=== PATIENT | female | born 1970 | race African-American/Black ===

== ENCOUNTER 2016-05-16 12:14 | Emergency (ER) | payer MEDICAID ==
[~2016-05-16] VITALS: Ht 172.7 cm; Wt 108.9 kg
[~2016-05-16 12:14] MED LIST: CYCLOBENZAPRINE10 MG ORAL; IBUPROFEN600 MG ORAL; IBUPROFEN800 MG ORAL
[2016-05-16 12:26] VITALS: BP 132/82
[2016-05-16] MEDS ORDERED: NKM (12:33)
--- NOTE | 2016-05-16 12:54 | Emergency Room Report ---
History of Present Illness General Chief Complaint: Upper Respiratory Illness Source: Patient Present Illness HPI 45 YO Female presents to the ED c/o dry cough, nasal congestion, body-aches, and increased phlegm x 3 days. Patient is up-to-date with vaccinations she denies ill contacts or recent travel patient denies fevers or chills patient denies abdominal pain, rashes nausea or vomiting. Patient reports history of bronchitis in the past. Denies CP, Palpitations, LOC, AMS, dizziness, Changes in Vision, Sensation, paresthesias, or a sudden severe headache. Allergies: Coded Allergies: No Known Allergies (Unverified , 05/16/16) Patient History Past Medical History: see triage record Past Surgical History: none Pertinent Family History: none Last Menstrual Period: 02/2016 Now: No : 5 Para: 5 Immunizations: UTD Reviewed Nursing Documentation: PMH: Agreed, PSxH: Agreed Nursing Documentation-PMH Past Medical History: No History, Except For Review of Systems All Other Systems: negative except mentioned in HPI Physical Exam Vital Signs Date Time Temp Pulse Resp B/P Pulse Ox O2 Delivery O2 Flow Rate FiO2 05/16/16 12:26 98.1 104 18 132/82 99 Room Air Sp02 EP Interpretation: reviewed, abnormal - tachycardic at 104 General Appearance: no apparent distress, alert, GCS 15, non-toxic Head: normocephalic, atraumatic Eyes: bilateral eye PERRL, bilateral eye normal inspection ENT: hearing grossly normal, normal pharynx, no angioedema, normal voice, TMs + canals normal, uvula midline, nasal congestion, pharyngeal erythema Neck: full range of motion, supple/symm/no masses Respiratory: chest non-tender, lungs clear, normal breath sounds, speaking full sentences, wheezing - mild expiratory wheezes Cardiovascular #1: regular rate, rhythm, no edema, normal capillary refill Musculoskeletal: back normal, gait/station normal, normal range of motion, non- tender Neurologic: alert, oriented x3, responsive, motor strength/tone normal, sensory intact, speech normal Psychiatric: judgement/insight normal, memory normal, mood/affect normal, no suicidal/homicidal ideation Reflexes: 4+ bicep (R), 4+ bicep (L), 4+ tricep (R), 4+ tricep (L), 4+ knee (R) , 4+ knee (L) Skin: normal color, no rash, warm/dry, well hydrated Lymphatic: no adenopathy Medical Decision Making PA Attestation Dr. Shrestha is my supervising Physician whom patient management has been discussed with. Diagnostic Impression: Primary Impression: Bronchitis, acute Qualified Codes: J20.9 - Acute bronchitis, unspecified Additional Impression: Upper respiratory infection Qualified Codes: J06.9 - Acute upper respiratory infection, unspecified; B97.89 - Other viral agents as the cause of diseases classified elsewhere ER Course 45 YO Female presents to the ED c/o dry cough, nasal congestion, body-aches, and increased phlegm x 3 days. Patient is up-to-date with vaccinations she denies ill contacts or recent travel patient denies fevers or chills patient denies abdominal pain, rashes nausea or vomiting. Patient reports history of bronchitis in the past. Ddx considered but are not limited to URI, pneumonia, PE, strep pharyngitis, meningitis. Vital signs: Pt. is afebrile, the remaining VS are WNL H&PE are most consistent with URI- no meningeal signs, oropharynx is not involved, no evidence of bacterial infection at this time. ORDERS: none required at this time, the diagnosis is clinical ED INTERVENTIONS: None required at this time. --PT. EDUCATION: Discussed antibiotic resistance with inappropriate prescribing of antibiotics for viral illnesses. Discussed signs and symptoms to indicate viral illness versus bacterial illness. - I do not suspect an emergent condition at this time. with current presentation pt. is stable for close outpatient follow up. DISCHARGE: At this time pt. is stable for d/c to home. Will provide printed patient care instructions, and any necessary prescriptions. Care plan and follow up instructions have been discussed with the patient prior to discharge. Last Vital Signs Date Time Temp Pulse Resp B/P Pulse Ox O2 Delivery O2 Flow Rate FiO2 05/16/16 12:26 98.1 104 18 132/82 99 Room Air Disposition: HOME, SELF-CARE Condition: Stable Scripts Pseudoephedrine Hcl* (SUDAFED*) 30 Mg Tablet 30 MG PO Q6H for 5 Days, #20 TAB Prov: Carolyn Ibarra P.A. 05/16/16 Albuterol Sulfate* (ALBUTEROL SULFATE MDI*) 8.5 Gm Hfa.aer.ad 2 PUFF INH Q3H, #1 INH 0 Refills Prov: Carolyn Ibarra 05/16/16 Guaifenesin (Guaifenesin) 1,200 Mg Tab.er.12h 1200 MG PO BID for 10 Days, #20 TAB Prov: Caorlyn Ibarra 05/16/16 Codeine/Promethazine Hcl* (PROMETHAZINE-CODEINE SYRUP*) 118 Ml Syrup 5 ML ORAL Q6H, #118 ML 0 Refills Prov: Carolyn Ibarra 05/16/16 Patient Instructions: Acute Bronchitis, [id number], Upper Respiratory Infection, Adult Additional Instructions: Take medications as directed. Follow up with PCP in 3-5 days Return sooner to ED if new symptoms occur, or current symptoms become worse. Do not drink alcohol, drive, or operate heavy machinery while taking Cough Syrup as this may cause drowsiness. - Please note that this Emergency Department Report was dictated using [employer] fabricator technology software, occasionally this can lead to erroneous entry secondary to interpretation by the dictation equipment. Carolyn Ibarra May 16, 2016 12:54
[2016-05-16] MEDS ORDERED: ALBUTEROL SULF8.5 GM INH (12:55)
[2016-05-16] MEDS ORDERED: PROMETHAZINE-C118 M1 ORAL (12:55)
[2016-05-16] MEDS ORDERED: GUAIFENESIN1200 MG PO (12:55)
[2016-05-16] MEDS ORDERED: PSEUDOEPHEDRINE30 MG PO (12:55)
[2016-05-16 13:09] VITALS: BP 132/80
[2016-05-16 13:11] VITALS: BP 132/80
== END 2016-05-16 13:18 | disposition home or self-care (01) ==
LOC: EMR 13:00
DX: J20.9 Acute bronchitis, unspecified (principal); J06.9 Acute upper respiratory infection, unspecified; B97.89 Other viral agents as the cause of diseases classified elsewhere
CPT/HCPCS: 99284

== ENCOUNTER 2016-06-09 22:21 | Emergency (ER) | payer MEDICAID ==
[~2016-06-09] VITALS: Ht 172.7 cm; Wt 108.9 kg
[~2016-06-09 22:21] MED LIST changes: +ALBUTEROL SULF8.5 GM INH; +GUAIFENESIN1200 MG PO; +NKM; +PROMETHAZINE-C118 M1 ORAL; +PSEUDOEPHEDRINE30 MG PO
--- NOTE | 2016-06-09 22:55 | Emergency Room Report ---
History of Present Illness General Chief Complaint: Upper Respiratory Illness Source: Patient Present Illness HPI This is a 45-year-old female with no past medical history. She resides with chief complaint of cough congestion for last 2 weeks. No fever or chills. Cough is nonproductive. Worse with a deep breath. Worse when she walks. She has congestion. Now she has generalized pain. Was here a couple weeks ago and was given albuterol. Not helping. Denies any other complaint. Allergies: Coded Allergies: No Known Allergies (Unverified , 05/16/16) Patient History Past Medical History: none, see triage record, old chart reviewed Past Surgical History: none Pertinent Family History: none Social History: Denies: smoking Now: No : 5 Para: 5 Immunizations: other Reviewed Nursing Documentation: PMH: Agreed, PSxH: Agreed Nursing Documentation-PMH Past Medical History: No Stated History Review of Systems Eye: Denies: blurred vision, eye pain ENT: Reports: nose congestion, Denies: ear pain, throat swelling Respiratory: Reports: cough, shortness of breath Cardiovascular: Denies: chest pain, palpitations Gastrointestinal: Denies: abdominal pain, diarrhea, nausea, vomiting Musculoskeletal: Denies: back pain, joint pain Skin: Denies: rash Neurological: Denies: headache, numbness Endocrine: Denies: increased thirst, increased urine Hematologic/Lymphatic: Denies: easy bruising All Other Systems: negative except mentioned in HPI Physical Exam Vital Signs Date Time Temp Pulse Resp B/P Pulse Ox O2 Delivery O2 Flow Rate FiO2 06/09/16 22:35 97.9 103 20 133/85 99 Room Air vitals normal Sp02 EP Interpretation: reviewed, normal General Appearance: well appearing, no apparent distress, alert Head: normocephalic, atraumatic Eyes: bilateral eye EOMI, bilateral eye PERRL ENT: hearing grossly normal, normal pharynx, other - left TM with fluid Neck: full range of motion, supple, no meningismus Respiratory: chest non-tender, normal breath sounds, other - Bronchospasm with inspiration Cardiovascular #1: regular rate, rhythm, no murmur Gastrointestinal: normal bowel sounds, non tender, no mass, no organomegaly, no bruit, non-distended Musculoskeletal: back normal, gait/station normal, normal range of motion Psychiatric: mood/affect normal Skin: warm/dry Medical Decision Making Diagnostic Impression: Primary Impression: Upper respiratory infection Qualified Codes: J06.9 - Acute upper respiratory infection, unspecified Additional Impressions: Bronchospasm with bronchitis, acute Left otitis media with effusion ER Course Patient presents with an upper respiratory infection. Probably initially with viral but now worsening. Because been over 2 weeks we'll going put on antibiotics. This may be atypical pneumonia. She does have significant bronchospasm. We'll treat with nebs and steroid. No evidence of sepsis, ACS, PE, dissection to name a few. Last Vital Signs Date Time Temp Pulse Resp B/P Pulse Ox O2 Delivery O2 Flow Rate FiO2 06/09/16 22:51 103 20 Room Air 06/09/16 22:35 97.9 133/85 99 Status: improved Disposition: HOME, SELF-CARE Condition: Stable Scripts Codeine/Promethazine Hcl* (PROMETHAZINE-CODEINE SYRUP*) 118 Ml Syrup 10 ML ORAL Q6H Y for For Cough, #118 ML 0 Refills Prov: ANNABEL CUELLAR M.D. 06/09/16 Pseudoephedrine Hcl* (NEXAFED*) 30 Mg Tablet 60 MG ORAL Q6H Y for congestion, #20 TAB Prov: ANNABEL CUELLAR M.D. 06/09/16 Azithromycin* (ZITHROMAX*) 250 Mg Tablet 250 MG ORAL DAILY, #6 TAB 0 Refills Take two tablets by mouth today, then take one tablet by mouth daily for four days Prov: ANNABEL CUELLAR M.D. 06/09/16 Prednisone* (PREDNISONE*) 20 Mg Tablet 60 MG ORAL DAILY, #12 TAB Prov: ANNABEL CUELLAR M.D. 06/09/16 Patient Instructions: Upper Respiratory Infection, Adult Additional Instructions: Follow up with your doctor in 3-5 days. Return if symptoms worsen. ANNABEL CUELLAR M.D. Jun 09, 2016 22:55
[2016-06-09] MEDS ORDERED: Albuterol ud Inhalation HHN ONE (23:00)
[2016-06-09] MEDS ORDERED: PredniSONE 20mg tab ORAL ONE (23:00)
[2016-06-09] MEDS ORDERED: Ipratropium 0.02% Inh Soln 2.5ml UD HHN ONE (23:00)
[2016-06-09 23:15] VITALS: BP 130/84
[2016-06-09] MEDS ORDERED: NEXAFED30 MG ORAL (23:40)
[2016-06-09] MEDS ORDERED: PROMETHAZINE-C118 M1 ORAL (23:40)
[2016-06-09] MEDS ORDERED: PREDNISONE20 MG ORAL (23:40)
[2016-06-09] MEDS ORDERED: AZITHROMYCIN250 MG ORAL (23:40)
[2016-06-09 23:45] VITALS: BP 130/84
== END 2016-06-09 23:45 | disposition home or self-care (01) ==
LOC: EMR 22:57
DX: J06.9 Acute upper respiratory infection, unspecified (principal); J20.9 Acute bronchitis, unspecified; H66.92 Otitis media, unspecified, left ear; R51 Headache
CPT/HCPCS: 94640; 99284

== ENCOUNTER 2018-07-13 18:54 | Emergency (ER) | payer MEDICAID ==
[~2018-07-13] VITALS: Ht 172.7 cm; Wt 108.9 kg
[~2018-07-13 18:54] MED LIST changes: +AZITHROMYCIN250 MG ORAL; +NEXAFED30 MG ORAL; +PREDNISONE20 MG ORAL
[2018-07-13 19:15] VITALS: BP 160/100
--- NOTE | 2018-07-13 19:15 | NUR ---
ED Nurse Note: walked in c/o low back pain radiating to left lower abd x 6 days.
--- NOTE | 2018-07-13 19:16 | NUR ---
ED Nurse Note: pt deneis trauma to the area, pt also states that she took motrin and tylenol to help alleviate pain and it did not help
--- NOTE | 2018-07-13 19:20 | NUR ---
ED Nurse Note: urine sent to lab
--- NOTE | 2018-07-13 19:45 | NUR ---
ED Nurse Note: blood sent to lab
[2018-07-13 20:01] LABS: APPEARANCE,URINE CLEAR; BILIRUBIN, URINE NEGATIVE (NEGATIVE); COLOR,URINE PALE YELLOW; GLUCOSE, URINE (UA) NEGATIVE (NEGATIVE); KETONES,URINE NEGATIVE (NEGATIVE); LEUKOCYTE ESTERASE ,URINE 1+ (NEGATIVE); NITRITE,URINE NEGATIVE (NEGATIVE); PH,URINE 6 (4.5-8.0); PROTEIN,URINE NEGATIVE (NEGATIVE); UROBILINOGEN,URINE NORMAL MG/DL (0.0-1.0)
[2018-07-13 20:02] LABS: BASOPHILS % (AUTO) 0.7 % (0.0-2.0); HEMATOCRIT 37.8 % (37.0-47.0); HEMOGLOBIN 12.5 G/DL (12.0-16.0); LYMPHOCYTES % (AUTO) 36.4 % (20.0-45.0); MEAN CORPUSCULAR VOLUME 77 FL (80-99); MONOCYTES % (AUTO) 6.7 % (1.0-10.0); NEUTROPHILS % (AUTO) 51.2 % (45.0-75.0); PLATELET COUNT 237 K/UL (150-450); WHITE BLOOD COUNT 9.8 K/UL (4.8-10.8)
[2018-07-13 20:10] LABS: ANION GAP 7 mmol/L (5-15); BLOOD UREA NITROGEN 12 mg/dL (7-18); CALCIUM 9.3 MG/DL (8.5-10.1); CARBON DIOXIDE 27 MMOL/L (21-32); CHLORIDE 104 MMOL/L (98-107); CREATININE 0.7 MG/DL (0.55-1.30); POTASSIUM 4.5 MMOL/L (3.5-5.1); SODIUM 138 MMOL/L (136-145)
--- NOTE | 2018-07-13 20:13 | NUR ---
ED Nurse Note: pt left for CT abd
--- NOTE | 2018-07-13 20:25 | NUR ---
ED Nurse Note: PT RETURNED FROM CT
[2018-07-13 20:27] LABS: ALANINE AMINOTRANSFERASE 36 U/L (12-78); ALBUMIN 3.7 G/DL (3.4-5.0); ALBUMIN/GLOBULIN RATIO 0.9 (1.0-2.7); ALKALINE PHOSPHATASE 124 U/L (46-116); ASPARTATE AMINO TRANSFERASE 22 U/L (15-37); BILIRUBIN,TOTAL 0.2 MG/DL (0.2-1.0)
[2018-07-13 20:53] VITALS: BP 155/89
--- NOTE | 2018-07-13 21:11 | Emergency Room Report ---
History of Present Illness General Chief Complaint: Pain Source: Medical Record Present Illness HPI 47-year-old female with no significant past medical history here complaining of 5 days of left back pain radiating to left lower frontal abdominal pain. She reports that she was sleeping and the pain woke up reporting the pain is constant and 10 out of 10. Pain care 3 days ago no x-ray was performed was tested for her urinating was negative for infection. However patient denies area, urinary frequency, hematuria, and suprapubic pain. No nausea vomiting, fever chills. She also denies any tingling or numbness and denies his physical activity or heavy lifting. Denies fall or trauma to the affected area. Point of pain starting in the left lateral lumbar region radiating all the way to the flank and left lower abdominal quadrant. Denies chest pain, S OB, palpitation, dizziness, headache. Denies pain radiation down the leg or any numbness. Denies saddle paresthesia, urinary and bowel incontinence Allergies: Coded Allergies: No Known Allergies (Unverified , 07/13/18) Patient History Past Medical History: see triage record Past Surgical History: unable to obtain Pertinent Family History: none Last Menstrual Period: Now: No : 5 Para: 5 Immunizations: UTD Reviewed Nursing Documentation: PMH: Agreed; PSxH: Agreed Nursing Documentation-PMH Past Medical History: No History, Except For Review of Systems All Other Systems: negative except mentioned in HPI Physical Exam Vital Signs Date Time Temp Pulse Resp B/P (MAP) Pulse Ox O2 Delivery O2 Flow Rate FiO2 07/13/18 19:07 97.7 96 18 98 Room Air 07/13/18 19:15 160/100 Sp02 EP Interpretation: reviewed, normal General Appearance: normal inspection, well appearing Head: normocephalic, atraumatic Eyes: bilateral eye normal inspection, bilateral eye PERRL ENT: normal ENT inspection, hearing grossly normal Neck: normal inspection, full range of motion, supple, thyroid normal Respiratory: normal inspection, chest non-tender, lungs clear, no rhonchi, no wheezing Cardiovascular #1: normal inspection, regular rate, rhythm, no edema, no murmur , normal capillary refill Gastrointestinal: normal bowel sounds, non tender, soft, no mass, no organomegaly, no peritonitis, guarding - LLQ Genitourinary: no CVA tenderness Musculoskeletal: normal inspection, back normal, normal range of motion, non- tender Neurologic: normal inspection, alert, oriented x3 Psychiatric: normal inspection, judgement/insight normal Skin: normal inspection, normal color, no rash, warm/dry Lymphatic: normal inspection, no adenopathy Medical Decision Making PA Attestation All my diagnosis and treatment plans were reviewed ad discussed with my supervising physician Dr. Mc Diagnostic Impression: Primary Impression: Diverticulosis Additional Impression: Lumbar strain ER Course 47-year-old female with no significant past medical history here complaining of 5 days of left back pain radiating to left lower frontal abdominal pain. She reports that she was sleeping and the pain woke up reporting the pain is constant and 10 out of 10. Pain care 3 days ago no x-ray was performed was tested for her urinating was negative for infection. However patient denies area, urinary frequency, hematuria, and suprapubic pain. No nausea vomiting, fever chills. She also denies any tingling or numbness and denies his physical activity or heavy lifting. Denies fall or trauma to the affected area. Point of pain starting in the left lateral lumbar region radiating all the way to the flank and left lower abdominal quadrant. Denies chest pain, S OB, palpitation, dizziness, headache. Denies pain radiation down the leg or any numbness. Denies saddle paresthesia, urinary and bowel incontinence Ddx considered but are not limited to: appendicitis, cholycisitis, gastritis, gasthroentritis, UTI, pylonephritis, SBO, diverticulitis, influenza with GI manifestation, WI, complication with , pyloneprhitis, renal mass, hydroneprhosis , diverticulosis, lumbar strain, lumbar sprain Vital signs: are WNL, pt. is afebrile H&PE are most consistent with: diverticulosis, lumbar strain ORDERS: abdominal pelvic CT, UA, urine cx, cbc, cmp, lipase, naproxen, flagyl, cipro ED INTERVENTIONS: None required at this time. DISCHARGE: At this time pt. is stable for d/c to home. Will provide printed patient care instructions, and any necessary prescriptions. Care plan and follow up instructions have been discussed with the patient prior to discharge. follow up with a grey goods tester regarding her diverticulosis there is no evidence of diverticulitis noted on the abdominal CT have a diet rich in fiber take your medication as directed and avoid alcohol. Avoid strenuous physical activity CT/MRI/US Diagnostic Results CT/MRI/US Diagnostic Results : Imaging Test Ordered: abd pelvic CT Impression FINDINGS: Lung bases: Unremarkable. No mass. No consolidation. ABDOMEN: Liver: 2.9 x 2.1 cm cyst near the dome of the liver. Gallbladder and bile ducts: Unremarkable. No calcified stones. No ductal dilation. Pancreas: Unremarkable. No ductal dilation. Spleen: Unremarkable. No splenomegaly. Adrenals: Unremarkable. No mass. Kidneys and ureters: Unremarkable. No obstructing stones. No hydronephrosis. Stomach and bowel: There is diverticulosis of the colon. No evidence of acute diverticulitis. No obstruction. PELVIS: Appendix: The appendix is identified and normal in appearance. Bladder: Unremarkable. No stones. Reproductive: Unremarkable as visualized. ABDOMEN and PELVIS: Intraperitoneal space: Unremarkable. No free air. No significant fluid collection. Bones/joints: No acute fracture. No dislocation. Soft tissues: Unremarkable. Vasculature: Unremarkable. No abdominal aortic aneurysm. Lymph nodes: Unremarkable. No enlarged lymph nodes. IMPRESSION: 1. No acute abdominal or pelvic pathology. 2. Diverticulosis of the colon. No evidence of acute diverticulitis. Last Vital Signs Date Time Temp Pulse Resp B/P (MAP) Pulse Ox O2 Delivery O2 Flow Rate FiO2 07/13/18 20:53 97.7 88 18 155/89 100 Room Air Disposition: HOME, SELF-CARE Condition: Stable Referrals: [facility],REFERRING (PCP) Patient Instructions: Diverticulosis, Lumbosacral Strain Additional Instructions: follow up with a grey goods tester regarding her diverticulosis there is no evidence of diverticulitis noted on the abdominal CT have a diet rich in fiber take your medication as directed and avoid alcohol. Avoid strenuous physical activity Maicol Flaherty July 13, 2018 21:10
--- NOTE | 2018-07-13 21:21 | Diagnostic Imaging Report ---
EXAM: CT Abdomen and Pelvis Without Intravenous Contrast CLINICAL HISTORY: PAIN TECHNIQUE: Axial computed tomography images of the abdomen and pelvis without intravenous contrast. CTDI is 18 mGy and DLP is 1094 mGy-cm. One or more of the following dose reduction techniques were used: automated exposure control, adjustment of the mA and/or kV according to patient size, use of iterative reconstruction technique. COMPARISON: No relevant prior studies available. FINDINGS: Lung bases: Unremarkable. No mass. No consolidation. ABDOMEN: Liver: 2.9 x 2.1 cm cyst near the dome of the liver. Gallbladder and bile ducts: Unremarkable. No calcified stones. No ductal dilation. Pancreas: Unremarkable. No ductal dilation. Spleen: Unremarkable. No splenomegaly. Adrenals: Unremarkable. No mass. Kidneys and ureters: Unremarkable. No obstructing stones. No hydronephrosis. Stomach and bowel: There is diverticulosis of the colon. No evidence of acute diverticulitis. No obstruction. PELVIS: Appendix: The appendix is identified and normal in appearance. Bladder: Unremarkable. No stones. Reproductive: Unremarkable as visualized. ABDOMEN and PELVIS: Intraperitoneal space: Unremarkable. No free air. No significant fluid collection. Bones/joints: No acute fracture. No dislocation. Soft tissues: Unremarkable. Vasculature: Unremarkable. No abdominal aortic aneurysm. Lymph nodes: Unremarkable. No enlarged lymph nodes. IMPRESSION: 1. No acute abdominal or pelvic pathology. 2. Diverticulosis of the colon. No evidence of acute diverticulitis.
[2018-07-13 21:27] VITALS: BP 155/89
--- NOTE | 2018-07-13 21:27 | NUR ---
ER DISCHARGE NOTE: Patient is cleared to be discharged per ERMD, pt is aox4, on room air, with stable vital signs. pt was given dc and prescription instructions, pt was able to verbalize understanding, pt id band and iv site removed without complications. pt is able to ambulate with steady gait. pt took all belongings.
[2018-07-13] MEDS ORDERED: CIPRO500 MG PO (21:35)
[2018-07-13] MEDS ORDERED: NAPROXEN500 M2 ORAL (21:35)
[2018-07-13] MEDS ORDERED: METRONIDAZOLE500 MG ORAL (21:35)
== END 2018-07-13 21:27 | disposition home or self-care (01) ==
LOC: EMR 19:44
DX: K57.90 Diverticulosis of intestine, part unspecified, without perforation or abscess without bleeding (principal); S39.012A Strain of muscle, fascia and tendon of lower back, initial encounter; X58.XXXA Exposure to other specified factors, initial encounter; Y92.9 Unspecified place or not applicable
CPT/HCPCS: 36415; 74176; 80053; 81003; 85025; 87086; 99284

== ENCOUNTER 2018-10-12 12:41 | Emergency (ER) | payer MEDICAID ==
[~2018-10-12] VITALS: Ht 172.7 cm; Wt 117.0 kg
[~2018-10-12 12:41] MED LIST changes: +CIPRO500 MG PO; +METRONIDAZOLE500 MG ORAL; +NAPROXEN500 M2 ORAL
--- NOTE | 2018-10-12 12:57 | NUR ---
ED Nurse Note: PT WALKED IN TO ER TODAY FROM HOME. AXO4. PT C/O NONRADIATING CHEST TIGHTNESS AND PAIN / X 1 WEEK. PT DENIES SOB OR DIZZINESS. PT STATES, "I CAN FEEL MY HEART BEATING REALLY FAST." PT TACHYCARDIC - HR [address] HERRERA NOTIFIED.
[2018-10-12 13:00] VITALS: BP 126/82
[2018-10-12] MEDS ORDERED: ALPRAZolam 0.25mg tab ORAL ONE (13:30)
--- NOTE | 2018-10-12 13:35 | NUR ---
ED Nurse Note: XRAY AT BEDSIDE.
--- NOTE | 2018-10-12 13:40 | Emergency Room Report ---
History of Present Illness General Chief Complaint: Chest Pain Source: Patient, Medical Record Present Illness HPI Disclaimer: Please note that this report is being documented using DRAGON technology. This can lead to erroneous entry secondary to incorrect interpretation by the dictating instrument. HPI: 48-year-old otherwise healthy female presents for evaluation of chest pain palpitations. Over the past 6 days the patient has had intermittent palpitations feeling that her heart is beating out of her chest and having some nonspecific chest aching/pressure/sharp pain over the sternum that does not radiate. Is not associated with activity and not relieved by rest. It appears to come spontaneously. Unfortunately, her mother suddenly 6 days ago and she attributes much of this chest pain and palpitations to anxiety/ grief. She has no history of CAD and denies family history. She does not smoke , denies hypertension, hyperlipidemia, diabetes or other risk factors. She takes no medications. Currently, she is complaining of an ache over the sternum that does not radiate, no shortness of breath, no diaphoresis. She states she gets intermittently nauseated while she is thinking about her mother but this quickly resolves. She has not had a heart evaluation or stress/echo/ cath in the past. Otherwise, she is in her usual state of health and denies any recent fevers, chills, shortness of breath, vomiting, diarrhea, dysuria, flank pain PMH: Denies PSH: Denies Allergies: Denies Social Hx: Denies alcohol, drug or tobacco use Allergies: Coded Allergies: No Known Allergies (Unverified , 07/13/18) Patient History Last Menstrual Period: 10/2018 Now: No : 5 Para: 5 Nursing Documentation-PMH Hx Asthma: Yes History Of Psychiatric Problem: Yes - Anxiety Review of Systems All Other Systems: negative except mentioned in HPI Physical Exam Vital Signs Date Time Temp Pulse Resp B/P (MAP) Pulse Ox O2 Delivery O2 Flow Rate FiO2 10/12/18 12:45 98.2 110 18 129/85 (100) 97 Room Air General: Awake and alert, no acute distress HEENT: NC/AT. EOMI. moist mucous membranes Neck: Supple, trachea midline Chest Wall: Tenderness over the sternum without obvious deformity Cardiovascular: RRR. S1 and S2 normal. No murmur appreciated Resp: Normal work of breathing. No cough, wheezing or crackles appreciated Abdomen: Abdomen is soft, nondistended, obese. Nontender Skin: Intact. No abrasions, laceration or rash over the exposed skin MSK: Normal tone and bulk. Moving all extremities. No obvious deformity. No lower extremity edema Neuro: Awake and alert. Mentating appropriately. Medical Decision Making Diagnostic Impression: Primary Impression: Chest pain ER Course Is a 48-year-old female with no significant medical history presenting for evaluation of 6 days palpitations, intermittent chest pain, intermittent nausea since the of her mother. Differential includes but is not limited to ACS , unstable angina, anxiety, arrhythmia, cardiomyopathy, viral illness. While the patient is low risk according to heart score criteria given her recent emotional distress will start conference of chest pain work-up including EKG, chest x-ray, labs. She will be given NSAIDs and a very small dose of anxiolytics. Laboratory Tests Test 10/12/18 13:20 White Blood Count 10.7 K/UL (4.8-10.8) Red Blood Count 5.13 M/UL (4.20-5.40) Hemoglobin 13.2 G/DL (12.0-16.0) Hematocrit 41.6 % (37.0-47.0) Mean Corpuscular Volume 81 FL (80-99) Mean Corpuscular Hemoglobin 25.7 PG (27.0-31.0) L Mean Corpuscular Hemoglobin Concent 31.7 G/DL (32.0-36.0) L Red Cell Distribution Width 12.8 % (11.6-14.8) Platelet Count 224 K/UL (150-450) Mean Platelet Volume 8.6 FL (6.5-10.1) Neutrophils (%) (Auto) 67.6 % (45.0-75.0) Lymphocytes (%) (Auto) 23.5 % (20.0-45.0) Monocytes (%) (Auto) 5.5 % (1.0-10.0) Eosinophils (%) (Auto) 3.0 % (0.0-3.0) Basophils (%) (Auto) 0.5 % (0.0-2.0) Sodium Level 139 MMOL/L (136-145) Potassium Level 3.5 MMOL/L (3.5-5.1) Chloride Level 104 MMOL/L (98-107) Carbon Dioxide Level 29 MMOL/L (21-32) Anion Gap 6 mmol/L (5-15) Blood Urea Nitrogen 8 mg/dL (7-18) Creatinine 0.8 MG/DL (0.55-1.30) Estimat Glomerular Filtration Rate > 60 mL/min (>60) Glucose Level 138 MG/DL (74-106) H Calcium Level 9.4 MG/DL (8.5-10.1) Total Bilirubin 0.3 MG/DL (0.2-1.0) Aspartate Amino Transf (AST/SGOT) 16 U/L (15-37) Alanine Aminotransferase (ALT/SGPT) 24 U/L (12-78) Alkaline Phosphatase 119 U/L (46-116) H Total Creatine Kinase 122 U/L (26-308) Creatine Kinase MB 1.0 NG/ML (0.0-3.6) Creatine Kinase MB Relative Index 0.8 Troponin I 0.000 ng/mL (0.000-0.056) Total Protein 7.5 G/DL (6.4-8.2) Albumin 3.5 G/DL (3.4-5.0) Globulin 4.0 g/dL Albumin/Globulin Ratio 0.9 (1.0-2.7) L EKG Diagnostic Results EKG Time: 13:00 EP Interpretation: Normal sinus rhythm, no ST segment changes, normal intervals , upright axis Rate: normal Rhythm: NSR ST Segments: no acute changes Rhythm Strip Diag. Results Rhythm Strip Time: 13:00 EP Interpretation: yes Rate: 90s Rhythm: NSR Chest X-Ray Diagnostic Results Chest X-Ray Diagnostic Results : Chest X-Ray Ordered: Yes # of Views/Limited/Complete: 1 View Indication: Chest Pain Reevaluation Time: 14:23 Last Vital Signs Date Time Temp Pulse Resp B/P (MAP) Pulse Ox O2 Delivery O2 Flow Rate FiO2 10/12/18 13:00 98.4 108 16 126/82 98 Room Air Reevaluation Impression Labs have returned largely within normal limits. No significant white count, no anemia, normal renal function with a creatinine of 0.8. Troponin is negative at 0.0. Patient states she had significant improvement after receiving 0.25 mg Xanax tablet and NSAIDs. I believe that overall she is low risk according to heart score criteria and that likely her palpitations are secondary to grief reaction from the loss of her mother 6 days ago. She denies any suicidality, homicidality and states she has a good support system at home. I did give her the name of some clinics in case she cannot get back to see her PMD as she has not seen them in several years. She can have further work- up if palpitations persist or she is having any return or chest pain I instructed her to return to the emergency department. I will give her a short dose of anxiolytics, 5 tablets, and instructed to follow-up with her PMD immediately. She declined to see a psychiatrist at this time. She appears reasonable and I believe would return if any change were to occur in her condition. She will be discharged home with strict return precautions. She understands and agrees with this treatment plan Disposition: HOME, SELF-CARE Condition: Improved Scripts Ibuprofen* (MOTRIN*) 600 Mg Tablet 600 MG ORAL Q6H PRN for For Pain, #30 TAB 0 Refills Prov: Edgardo Euceda MD 10/12/18 Alprazolam* (XANAX*) 0.25 Mg Tablet 0.25 MG ORAL TID PRN for For Anxiety, #5 TAB Prov: Edgardo Euceda MD 10/12/18 Referrals: [facility],REFERRING (PCP) Edgardo Euceda MD Oct 12, 2018 13:40
[2018-10-12 13:51] LABS: BASOPHILS % (AUTO) 0.5 % (0.0-2.0); HEMATOCRIT 41.6 % (37.0-47.0); HEMOGLOBIN 13.2 G/DL (12.0-16.0); LYMPHOCYTES % (AUTO) 23.5 % (20.0-45.0); MEAN CORPUSCULAR VOLUME 81 FL (80-99); MONOCYTES % (AUTO) 5.5 % (1.0-10.0); NEUTROPHILS % (AUTO) 67.6 % (45.0-75.0); PLATELET COUNT 224 K/UL (150-450); RED BLOOD COUNT 5.13 M/UL (4.20-5.40); RED CELL DISTRIBUTION WIDTH 12.8 % (11.6-14.8); WHITE BLOOD COUNT 10.7 K/UL (4.8-10.8)
[2018-10-12 13:54] LABS: ANION GAP 6 mmol/L (5-15); BLOOD UREA NITROGEN 8 mg/dL (7-18); CALCIUM 9.4 MG/DL (8.5-10.1); CARBON DIOXIDE 29 MMOL/L (21-32); CHLORIDE 104 MMOL/L (98-107); CREATININE 0.8 MG/DL (0.55-1.30); POTASSIUM 3.5 MMOL/L (3.5-5.1); SODIUM 139 MMOL/L (136-145)
--- NOTE | 2018-10-12 13:59 | Diagnostic Imaging Report ---
EXAM: XR Chest, 1 View CLINICAL HISTORY: CP TECHNIQUE: Frontal view of the chest. COMPARISON: No relevant prior studies available. FINDINGS: Lungs: Reduced lung volumes and accentuation of bronchovascular markings. Pleural space: Unremarkable. No pneumothorax. Heart: Cardiomegaly. Mediastinum: Unremarkable. Bones/joints: No acute fracture. IMPRESSION: Reduced lung volumes and accentuation of bronchovascular markings.
[2018-10-12 14:07] LABS: ALANINE AMINOTRANSFERASE 24 U/L (12-78); ALBUMIN 3.5 G/DL (3.4-5.0); ALBUMIN/GLOBULIN RATIO 0.9 (1.0-2.7); ALKALINE PHOSPHATASE 119 U/L (46-116); ASPARTATE AMINO TRANSFERASE 16 U/L (15-37); BILIRUBIN,TOTAL 0.3 MG/DL (0.2-1.0); CREATINE KINASE 122 U/L (26-308)
[2018-10-12] MEDS ORDERED: ALPRAZOLAM0.25 MG ORAL (14:18)
[2018-10-12] MEDS ORDERED: IBUPROFEN600 MG ORAL (14:21)
[2018-10-12 14:30] VITALS: BP 115/75
== END 2018-10-12 14:33 | disposition home or self-care (01) ==
LOC: EMR 13:09
DX: R07.9 Chest pain, unspecified (principal); J45.909 Unspecified asthma, uncomplicated
CPT/HCPCS: 36415; 71045; 80053; 82550; 82553; 84484; 85025; 93005; 99284

== ENCOUNTER 2018-11-03 08:17 | Emergency (ER) | payer MEDICAID ==
[~2018-11-03] VITALS: Ht 172.7 cm; Wt 113.4 kg
[~2018-11-03 08:17] MED LIST changes: +ALPRAZOLAM0.25 MG ORAL
[2018-11-03 08:21] VITALS: BP 137/81
--- NOTE | 2018-11-03 08:27 | NUR ---
ED Nurse Note: Pt walked in due to lower back pain more on the right side x 4 days. Denies recent injury or any difficulty in urination. AAO x4, ambulatory.
--- NOTE | 2018-11-03 08:44 | Emergency Room Report ---
History of Present Illness General Chief Complaint: Back Pain-No Injury Source: Patient Present Illness HPI Patient is a 48-year-old female who presents after increased low back pain. Patient reports having an acute onset of right-sided abdominal pain. She denies any recent trauma. She did not have any fever. She denies any dysuria. Pain is worse with movement. Pain does not radiate. She denies any bowel or bladder difficulty. She denies being diabetic. Is not been losing weight. Pain is described as a sharp pain. Patient states this did not change with medications that she had taken. Allergies: Coded Allergies: No Known Allergies (Unverified , 07/13/18) Patient History Past Medical History: see triage record Last Menstrual Period: 03/2018 Now: No Reviewed Nursing Documentation: PMH: Agreed; PSxH: Agreed Nursing Documentation-PMH Past Medical History: No History, Except For Hx Asthma: Yes Review of Systems All Other Systems: negative except mentioned in HPI Physical Exam Vital Signs Date Time Temp Pulse Resp B/P (MAP) Pulse Ox O2 Delivery O2 Flow Rate FiO2 11/03/18 08:21 97.7 95 20 137/81 97 Room Air Sp02 EP Interpretation: reviewed, normal General Appearance: normal inspection, well appearing, no apparent distress, alert, GCS 15, obese Head: atraumatic ENT: normal ENT inspection, hearing grossly normal, normal voice Neck: normal inspection, full range of motion, supple, no bony tend Respiratory: normal inspection, lungs clear, normal breath sounds, no respiratory distress, no retraction, no wheezing Cardiovascular #1: regular rate, rhythm, no edema Gastrointestinal: normal inspection, normal bowel sounds, non tender, soft, no guarding, no hernia Genitourinary: no CVA tenderness Musculoskeletal: normal inspection, back normal, normal range of motion Neurologic: normal inspection, alert, responsive, speech normal Psychiatric: normal inspection, judgement/insight normal, mood/affect normal Medical Decision Making Diagnostic Impression: Primary Impression: Low back pain ER Course Presented for back pain. Differential diagnosis included but was not limited to herniated disc, cauda equina syndrome, abdominal aortic aneurysm, perforated ulcer, spinal epidural abscess, spinal stenosis, lumbar fracture, metastatic lesion, pyelonephritis. Patient has a benign exam and does not appear to require any further imaging or laboratory testing at this time. Patient does not show any evidence of acute radiculopathy or cauda equina syndrome at this time. Patient is noted to be ambulatory without assistance. She is given medications for symptomatic treatment. Patient advised to follow-up with her primary care physician for recheck and to return if worse. Labs Test 11/03/18 08:23 Urine Color Pale yellow Urine Appearance Clear Urine pH 6.5 (4.5-8.0) Urine Specific [place] 1.005 (1.005-1.035) Urine Protein Negative (NEGATIVE) Urine Glucose (UA) Negative (NEGATIVE) Urine Ketones Negative (NEGATIVE) Urine Blood Negative (NEGATIVE) Urine Nitrite Negative (NEGATIVE) Urine Bilirubin Negative (NEGATIVE) Urine Urobilinogen Normal MG/DL (0.0-1.0) Urine Leukocyte Esterase Negative (NEGATIVE) Last Vital Signs Date Time Temp Pulse Resp B/P (MAP) Pulse Ox O2 Delivery O2 Flow Rate FiO2 11/03/18 08:21 97.7 95 20 137/81 (99) 97 Room Air Status: improved Disposition: HOME, SELF-CARE Condition: Stable Scripts Gabapentin* (GABAPENTIN*) 300 Mg Capsule 300 MG ORAL THREE TIMES A DAY, #30 CAP 0 Refills Prov: Pieter Mc MD 11/03/18 Pieter Mc MD Nov 03, 2018 08:44
[2018-11-03] MEDS ORDERED: Ketorolac 60mg Inj IM ONE (08:45)
[2018-11-03] MEDS ORDERED: GABAPENTIN300 MG ORAL (08:53)
[2018-11-03 08:59] LABS: APPEARANCE,URINE CLEAR; BILIRUBIN, URINE NEGATIVE (NEGATIVE); COLOR,URINE PALE YELLOW; GLUCOSE, URINE (UA) NEGATIVE (NEGATIVE); KETONES,URINE NEGATIVE (NEGATIVE); LEUKOCYTE ESTERASE ,URINE NEGATIVE (NEGATIVE); NITRITE,URINE NEGATIVE (NEGATIVE); PH,URINE 6.5 (4.5-8.0); PROTEIN,URINE NEGATIVE (NEGATIVE); UROBILINOGEN,URINE NORMAL MG/DL (0.0-1.0)
--- NOTE | 2018-11-03 09:34 | NUR ---
ER DISCHARGE NOTE: Patient is cleared to be discharged per ERMD, pt is aox4, on room air, with stable vital signs. pt was given dc and prescription instructions, pt was able to verbalize understanding, pt id band removed without complications. pt is able to ambulate with steady gait. pt took all belongings.
== END 2018-11-03 09:34 | disposition home or self-care (01) ==
LOC: EMR 09:30
DX: M54.5 Low back pain (principal); J45.909 Unspecified asthma, uncomplicated
CPT/HCPCS: 81003; 96372; 99283

== ENCOUNTER 2018-11-06 23:38 | Emergency (ER) | payer MEDICAID ==
[~2018-11-06] VITALS: Ht 172.7 cm; Wt 113.4 kg
[~2018-11-06 23:38] MED LIST changes: +GABAPENTIN300 MG ORAL
--- NOTE | 2018-11-06 23:58 | NUR ---
ED Nurse Note: pt walked in to ED C/O back pain 8/10 radiating to right groin for about a week. pt is alert x4. pt denies ant fall, trauma.
[2018-11-06 23:59] VITALS: BP 140/80
[2018-11-07] MEDS ORDERED: HYDROcodone/Acetamin 5/325 tab ONE (00:09)
[2018-11-07] MEDS: HYDROcodone/Acetamin 5/325 tab ORAL ONE ×2 (00:10→00:13)
--- NOTE | 2018-11-07 00:13 | NUR ---
ED Nurse Note: pt left to CT
--- NOTE | 2018-11-07 00:22 | Emergency Room Report ---
History of Present Illness General Chief Complaint: Back Pain-No Injury Source: Patient Present Illness HPI Is a 48-year-old female with no past medical history. She presents with chief complaint of lower back pain. This been ongoing for over a week. Pain is to the right lower back. Radiating to the groin area. Worse with movement. Worse with certain position. Pain is 8 out of 10. No nausea no vomiting. No trauma. No incontinence of bowel or urine. No numbness. She was here 4 days ago. Urinalysis was negative. Allergies: Coded Allergies: No Known Allergies (Unverified , 07/13/18) Patient History Past Medical History: see triage record, old chart reviewed Past Surgical History: none Pertinent Family History: none Social History: Denies: smoking Last Menstrual Period: Mar 2018 Now: No Immunizations: other Reviewed Nursing Documentation: PMH: Agreed; PSxH: Agreed Nursing Documentation-PMH Past Medical History: No Stated History Hx Asthma: Yes Review of Systems Eye: Denies: eye pain, blurred vision ENT: Denies: ear pain, nose congestion, throat swelling Respiratory: Denies: cough, shortness of breath Cardiovascular: Denies: chest pain, palpitations Gastrointestinal: Denies: abdominal pain, diarrhea, nausea, vomiting Musculoskeletal: Reports: back pain; Denies: joint pain Skin: Denies: rash Neurological: Denies: headache, numbness Endocrine: Denies: increased thirst, increased urine Hematologic/Lymphatic: Denies: easy bruising All Other Systems: negative except mentioned in HPI Physical Exam Vital Signs Date Time Temp Pulse Resp B/P (MAP) Pulse Ox O2 Delivery O2 Flow Rate FiO2 11/06/18 23:52 98.2 79 16 139/80 (99) 97 Room Air Vitals unremarkable Sp02 EP Interpretation: reviewed, normal General Appearance: well appearing, no apparent distress, alert, obese Head: normocephalic, atraumatic Eyes: bilateral eye PERRL, bilateral eye EOMI ENT: hearing grossly normal, normal pharynx Neck: full range of motion, supple, no meningismus Respiratory: chest non-tender, lungs clear, normal breath sounds Cardiovascular #1: regular rate, rhythm, no murmur Gastrointestinal: normal bowel sounds, non tender, no mass, no organomegaly, no bruit, non-distended Musculoskeletal: back normal - Tenderness to the right lower lumbar area. No step-off. No anesthesia., gait/station normal, normal range of motion Psychiatric: mood/affect normal Medical Decision Making Diagnostic Impression: Primary Impression: Lumbar radiculopathy, acute ER Course Patient presents with a lumbar radiculopathy. Most likely around L2-L3 region. CT scan show some arthritic degenerative changes. No obvious herniation. MRI would be a better test. No evidence of cauda equina syndrome, spinal epidural abscess or neoplastic process. Will discharge home. CT/MRI/US Diagnostic Results CT/MRI/US Diagnostic Results : Imaging Test Ordered: CT of the lumbar spine Impression Per radiologist neg Last Vital Signs Date Time Temp Pulse Resp B/P (MAP) Pulse Ox O2 Delivery O2 Flow Rate FiO2 11/06/18 23:59 98.2 86 18 140/80 98 Room Air Status: improved Disposition: HOME, SELF-CARE Condition: Stable Scripts Prednisone* (PREDNISONE*) 20 Mg Tablet 40 MG ORAL DAILY, #10 TAB Prov: Logan Gates MD 11/07/18 Oxycodone/Acetaminophen 5-325* (PERCOCET 5-325 MG TABLET*) 1 Each Tablet 1 TAB ORAL Q6H PRN for For Pain, #20 TAB Prov: Logan Gates MD 11/07/18 Referrals: [facility],REFERRING (PCP) Patient Instructions: Back Pain, Adult Additional Instructions: Follow-up with your doctor in 7 days. You may need an MRI. Return if worse. Logan Gates MD Nov 07, 2018 00:22
--- NOTE | 2018-11-07 00:26 | NUR ---
ED Nurse Note: back from ct
--- NOTE | 2018-11-07 01:10 | Diagnostic Imaging Report ---
Indications: Back pain for one week Technique: Spiral acquisitions obtained through the lumbar spine. Multiplanar reconstructions were generated. No IV contrast utilized. Total dose length product 1127.62 mGycm. CTDIvol(s) 32.22 mGy. Dose reduction achieved using automated exposure control Comparison: none Findings: No acute fracture. No dislocation. Vertebral body heights are preserved. The disc spaces are preserved. At L2-3, mild circumferential annular bulge, facet and ligamentum flavum hypertrophy result in mild narrowing of the spinal canal. At L3-4 and L4-5, there is circumferential annular bulge which does not result in significant spinal canal stenosis. There is also facet arthrosis bilaterally at these levels At L5-S1, facet arthrosis results in mild narrowing of the bilateral neural foramina. The remaining levels, no significant disc bulge or protrusion, spinal stenosis, or neural foraminal narrowing. The included extra spinal soft tissues are remarkable for the presence of colonic diverticulosis Impression: No acute bony trauma Mild degenerative changes, as detailed above Colonic diverticulosis incidentally noted This agrees with the preliminary interpretation provided overnight by [facility]. [place] [facility] [place] [employer] and the scans are performed using protocols designed to limit radiation exposure to as low as reasonably achievable to attain images of sufficient resolution adequate for diagnostic evaluation.
[2018-11-07] MEDS ORDERED: PREDNISONE20 MG ORAL (01:20)
[2018-11-07] MEDS ORDERED: oxyCODONE HCL/Acetaminophen 5/325mg ORAL ONE ×2 (01:20→01:30)
[2018-11-07] MEDS ORDERED: PERCOCET 5-3251 EACH ORAL (01:20)
[2018-11-07 01:24] VITALS: BP 138/79
== END 2018-11-07 01:24 | disposition home or self-care (01) ==
LOC: EMR 23:59
DX: M54.16 Radiculopathy, lumbar region (principal); J45.909 Unspecified asthma, uncomplicated
CPT/HCPCS: 72131; 99284